=== PATIENT | female | born 1960 | race Caucasian/White ===

== ENCOUNTER 2021-03-04 10:39 | Observation (INO) ==
[2021-03-04] MEDS ORDERED: Ketorolac 30 MG/ML VIAL IVP ONE (10:49)
[2021-03-04] MEDS ORDERED: Ondansetron 4 MG/2 ML VIAL IVP ONE (10:49)
[2021-03-04] MEDS ORDERED: 0.9 % Sodium Chloride 1,000 ML IVC ONE (10:50)
[2021-03-04 11:07] LABS: Basophils # 0.1 K/mcL (0.0-0.2); Basophils % 0.6 %; Eosinophils # 0.1 K/mcL (0.0-0.6); Eosinophils % 0.6 %; Hematocrit 34.1 % (35.3-44.9); Hemoglobin 10.7 g/dL (11.5-15.4); Immature Granulocytes % 0.4 % (0-4); Lymphocytes # 0.8 K/mcL (0.6-4.6); Lymphocytes % 9.6 %; Mean Corpuscular HGB Conc 31.4 g/dL (31.6-35.5); Mean Corpuscular Volume 92.4 fL (83.0-100.0); Mean Platelet Volume 9.5 fL (9.4-12.4); Monocytes # 0.6 K/mcL (0.0-1.3); Monocytes % 7.1 %; Neutrophils # 6.4 K/mcL (1.6-8.9); Platelet Count 200 K/mcL (140-400); Red Blood Count 3.69 M/mcL (3.82-4.97); Red Cell Distribution Width 13.3 % (11.5-14.5); Segmented Neutrophils % 81.7 %; White Blood Count 7.8 K/mcL (4.3-11.1)
[2021-03-04 11:23] LABS: Albumin 3.6 g/dL (3.5-5.7); Albumin/Globulin Ratio 1.3 (1.1-2.2); Bilirubin,Direct 0.1 mg/dL (0.0-0.2); Bilirubin,Indirect 0.4 mg/dL (0.0-1.0); Bilirubin,Total 0.5 mg/dL (0.3-1.0); Calcium 9.1 mg/dL (8.6-10.3); Globulin 2.8 g/dL (2.4-3.5); Total Protein 6.4 g/dL (6.4-8.9)
[2021-03-04 11:39] LABS: Bilirubin,Urine Negative (Negative); Blood,Urine Trace-intact (Negative); Clarity,Urine Cloudy (Clear); Color,Urine Yellow (Yellow); Glucose,Urine (UA) Normal (Normal); Ketones,Urine Negative (Negative); Leukocyte Esterase,Urine Moderate (Negative); Nitrite,Urine Positive (Negative); PH,Urine 5.5 pH Units (5.0-8.0); Protein,Urine Negative (Neg-Trace); Specific Gravity,Urine 1.025 (1.010-1.025); Urobilinogen,Urine Normal (Normal)
[2021-03-04 11:46] LABS: Bacteria,Urine Many per hpf (None-Few); RBC,Urine 0-3 per hpf (0-3); Squamous Epithelial Cell,Urine Few per hpf (None-Few); WBC,Urine TNTC per hpf (0-3)
[2021-03-04] MEDS ORDERED: cefTRIAXone 2,000 MG in 0.9 % Sodium Chloride Mini Bag 100 ML IVPB ONE (11:51)
[2021-03-04] MEDS: 0.9 % Sodium Chloride 1,000 ML IVC SCH ×2 (12:43→21:58)
[2021-03-04] MEDS ORDERED: Naloxone 0.4 MG/ML INJ IVP PRN (14:43)
[2021-03-04] MEDS ORDERED: Dextrose Gel 15 GM/37.5 ML TUBE PO PRN ×2 (14:47)
[2021-03-04] MEDS ORDERED: *HR* Dextrose 50 % in Water (Syg) 50 ML SYRINGE IVP PRN (14:47)
[2021-03-04] MEDS ORDERED: D5% in Water 1,000 ML IVC PRN (14:47)
[2021-03-04] MEDS ORDERED: *HR* HYDROcodone/Acet 10/325 mg TABLET PO PRN (15:04)
[2021-03-04] MEDS: Insulin LISPRO 300 UNITS/3 ML VIAL SUBQ SCH ×2 (16:58→22:00)
[2021-03-04] MEDS: Gabapentin 400 MG CAPSULE PO SCH ×2 (17:01→22:00)
[2021-03-04] MEDS: Ondansetron 4 MG/2 ML VIAL IVP PRN (19:16)
[2021-03-04] MEDS: metroNIDAZOLE 500 MG TABLET PO SCH (21:55)
[2021-03-04] MEDS: Budesonide/Formoterol 160/4.5 1 PUFF INH IH SCH (22:00)
[2021-03-04] MEDS: Ascorbic Acid 500 MG TABLET PO SCH (22:00)
[2021-03-05] MEDS: *HR* Enoxaparin 40 MG/0.4 ML SYRINGE SQ SCH (05:59)
[2021-03-05 07:07] LABS: Basophils # 0.1 K/mcL (0.0-0.2); Eosinophils # 0.1 K/mcL (0.0-0.6); Eosinophils % 1.4 %; Hematocrit 33.7 % (35.3-44.9); Hemoglobin 10.4 g/dL (11.5-15.4); Immature Granulocytes % 0.6 % (0-4); Lymphocytes % 15.4 %; Mean Corpuscular HGB Conc 30.9 g/dL (31.6-35.5); Mean Corpuscular Hemoglobin 29.1 pg (28.0-33.3); Mean Corpuscular Volume 94.1 fL (83.0-100.0); Mean Platelet Volume 10.1 fL (9.4-12.4); Monocytes # 0.6 K/mcL (0.0-1.3); Monocytes % 8.8 %; Neutrophils # 4.6 K/mcL (1.6-8.9); Platelet Count 186 K/mcL (140-400); Red Blood Count 3.58 M/mcL (3.82-4.97); Red Cell Distribution Width 13.6 % (11.5-14.5); Segmented Neutrophils % 72.8 %; White Blood Count 6.3 K/mcL (4.3-11.1)
[2021-03-05 07:26] LABS: Calcium 8.6 mg/dL (8.6-10.3); Magnesium 2.1 mg/dL (1.6-2.6); Potassium 4.9 mEq/L (3.5-5.1)
[2021-03-05] MEDS ORDERED: Furosemide 40 MG TABLET PO SCH ×2 (09:00)
[2021-03-05] MEDS: Aspirin Enteric Coated 81 MG Tablet PO SCH (09:16)
[2021-03-05] MEDS: Gabapentin 400 MG CAPSULE PO SCH ×3 (09:16→20:54)
[2021-03-05] MEDS: metroNIDAZOLE 500 MG TABLET PO SCH ×3 (09:16→20:53)
[2021-03-05] MEDS: 0.9 % Sodium Chloride 1,000 ML IVC SCH (09:19)
[2021-03-05] MEDS: cefTRIAXone 1,000 MG in Water for inj. (sterile) 10 ML IVP SCH (09:20)
[2021-03-05] MEDS: Insulin LISPRO 300 UNITS/3 ML VIAL SUBQ SCH ×4 (09:20→19:48)
[2021-03-05] MEDS: Ondansetron 4 MG/2 ML VIAL IVP PRN ×2 (09:21→20:53)
[2021-03-05] MEDS: Cholecalciferol (D-3) 1,000 UNIT (25MCG) TABLET PO SCH (09:21)
[2021-03-05] MEDS: Budesonide/Formoterol 160/4.5 1 PUFF INH IH SCH ×2 (16:02→21:51)
[2021-03-05 19:58] LABS: Adenovirus F 40/41 PCR Not detected (Not detect); Astrovirus PCR Not detected (Not detect); C.difficile Toxin A/B Gene PCR Not detected (Not detect); Campylobacter by PCR Not detected (Not detect); Cryptosporidium by PCR Not detected (Not detect); Cyclospora cayetanensis PCR Not detected (Not detect); E. coli O157 by PCR Not detected (Not detect); Entamoeba histolytica PCR Not detected (Not detect); Enteroaggregative E.coli(EAEC) Not detected (Not detect); Enteropathogenic E.coli(EPEC) DETECTED (Not detect); Enterotoxigenic E.coli (ETEC) Not detected (Not detect); Giardia lamblia PCR Not detected (Not detect); Norovirus GI/GII PCR Not detected (Not detect); Plesiomonas shigelloides PCR Not detected (Not detect); Rotavirus A PCR Not detected (Not detect); Salmonella PCR Not detected (Not detect); Sapovirus PCR Not detected (Not detect); Shig/EnteroinvasiveE coli EIEC Not detected (Not detect); Shigalike tox-prod E coli STEC Not detected (Not detect); Vibrio PCR Not detected (Not detect); Vibrio cholerae PCR Not detected (Not detect); Yersinia enterocolitica PCR Not detected (Not detect)
[2021-03-05] MEDS: Ascorbic Acid 500 MG TABLET PO SCH (20:53)
[2021-03-05] MEDS ORDERED: Famotidine 20 MG TABLET PO ONE (22:53)
[2021-03-06] MEDS: *HR* Enoxaparin 40 MG/0.4 ML SYRINGE SQ SCH (05:48)
[2021-03-06 08:03] LABS: Basophils # 0.1 K/mcL (0.0-0.2); Basophils % 0.8 %; Eosinophils # 0.2 K/mcL (0.0-0.6); Eosinophils % 2.5 %; Hematocrit 34.8 % (35.3-44.9); Hemoglobin 10.6 g/dL (11.5-15.4); Immature Granulocytes % 0.7 % (0-4); Lymphocytes # 1.1 K/mcL (0.6-4.6); Lymphocytes % 14.2 %; Mean Corpuscular HGB Conc 30.5 g/dL (31.6-35.5); Mean Corpuscular Volume 95.3 fL (83.0-100.0); Mean Platelet Volume 10.5 fL (9.4-12.4); Monocytes # 0.6 K/mcL (0.0-1.3); Monocytes % 8.5 %; Neutrophils # 5.5 K/mcL (1.6-8.9); Platelet Count 214 K/mcL (140-400); Red Blood Count 3.65 M/mcL (3.82-4.97); Red Cell Distribution Width 13.6 % (11.5-14.5); Segmented Neutrophils % 73.3 %; White Blood Count 7.5 K/mcL (4.3-11.1)
[2021-03-06 08:21] VITALS: BP 152/76; PULSE 78; RESP 16; TEMP 97.6; O2SAT 96
[2021-03-06] MEDS ORDERED: Furosemide 20 MG TABLET PO SCH ×2 (09:00)
[2021-03-06] MEDS: Aspirin Enteric Coated 81 MG Tablet PO SCH (09:01)
[2021-03-06] MEDS: Cholecalciferol (D-3) 1,000 UNIT (25MCG) TABLET PO SCH (09:04)
[2021-03-06] MEDS: metroNIDAZOLE 500 MG TABLET PO SCH (09:05)
[2021-03-06] MEDS: Insulin LISPRO 300 UNITS/3 ML VIAL SUBQ SCH ×2 (09:08→11:57)
[2021-03-06 09:14] LABS: Calcium 8.7 mg/dL (8.6-10.3); Potassium 4.4 mEq/L (3.5-5.1)
[2021-03-06] MEDS: Ondansetron 4 MG/2 ML VIAL IVP PRN (09:15)
[2021-03-06] MEDS: cefTRIAXone 1,000 MG in Water for inj. (sterile) 10 ML IVP SCH (09:16)
[2021-03-06] MEDS: Gabapentin 400 MG CAPSULE PO SCH (09:49)
[2021-03-06] MEDS: Budesonide/Formoterol 160/4.5 1 PUFF INH IH SCH (10:03)
[2021-03-06] MEDS ORDERED: Famotidine 20 MG TABLET PO ONE (21:39)
== END 2021-03-06 13:36 | disposition home or self-care (01) ==
LOC: INPPIK 10:39 → EMEROOPIK 10:39 → INPPIK 15:00
PROVIDERS: ADMIT Internal Medicine; ATTEND Internal Medicine